=== PATIENT | male | born 1970 | race Asian ===

== ENCOUNTER 2020-10-18 11:27 | Outpatient (REF) | payer OTHER, SELFPAY ==
[2020-10-18 14:50] LABS: Hemoglobin 15.7 g/dl (14.0-18.0); Mean Corpuscular Hemoglobin 27.6 pg (27.0-33.0); Mean Corpuscular Volume 86.3 fL (80-98); Mean Platelet Volume 12.7 fL (9.4-12.4); Platelet Count 161 X10*3/uL (160-400); Red Blood Count 5.68 X10*6/uL (4.60-5.80); Red Cell Distribution Width 12.2 % (11.0-16.0); White Blood Count 6.4 X10*3/uL (4.8-10.8)
[2020-10-18 15:14] LABS: Alanine Aminotransferase 32 U/L (0-40); Alkaline Phosphatase 54 U/L (39-117); Anion Gap 15 (12-20); Aspartate Amino Transferase 22 U/L (5-37); Bilirubin Total 0.4 mg/dL (0.0-1.0); Blood Urea Nitrogen 18 mg/dL (9-16); C Reactive Protein 0.13 mg/dL (< or = 0.50); Calcium 9.9 mg/dL (8.4-10.2); Carbon Dioxide 26 mmol/L (22-29); Chloride 106 mmol/L (96-108); Estimated Glomerular Filt Rate > 60; Glucose Random 87 mg/dL (60-115); Potassium 4.3 mmol/l (3.3-5.1); Sodium 143 mmol/L (135-145); Total Protein 7.8 g/dL (6.5-8.0)
[2020-10-18 15:29] LABS: Erythrocyte Sedimentation Rate 2 MM/HR (0-15)
[2020-10-18 15:34] LABS: Ferritin 126 ng/mL (20-250); TSH reflex Free T4 1.04 mIU/mL (0.32-4.0)
[2020-10-18 15:43] LABS: Folate 11.6 ng/mL (> or = 4.0); Vitamin B12 1029 pg/mL (200-900)
[2020-10-19 14:52] LABS: H Pylori Breath Test NOT DETECTED (NOT DETECTED)
[2020-10-21 14:12] LABS: IgA 305 mg/dL (47-310); IgG 1109 mg/dL (600-1640); IgM 50 mg/dL (50-300)
[2020-10-21 14:38] LABS: Immunoglobulin E 123 kU/L (<OR=114)
[2020-10-21 15:47] LABS: Transglutaminase Ab IgG 1 U/mL; Transglutaminase IgA 1 U/mL
[2020-10-21 23:57] LABS: Zinc 75 mcg/dL (60-130)
[2020-10-22 21:47] LABS: Histamine Plasma <1.5 ng/mL (< OR = 1.8)
== END 2020-10-18 11:28 | disposition home or self-care (01) ==
LOC: HO.LAB 11:27
PROVIDERS: Visit Provider Internal Medicine Gastroenterology
DX: R10.9 Unspecified abdominal pain (principal); K63.89 Other specified diseases of intestine; L50.3 Dermatographic urticaria
CPT/HCPCS: 36415; 80053; 82607; 82728; 82746; 82784; 82785; 83013; 83088; 83516; 83520; 84443; 84630; 85027; 85652; 86003; 86140

== ENCOUNTER 2020-10-19 | Outpatient (REF) | payer OTHER, SELFPAY ==
[2020-10-21 15:18] LABS: CDIFF Ag Negative (Negative); CDiff Toxin Negative (Negative)
[2020-10-21 15:19] LABS: CDIFF Internal ctrl Dots and bkg OK (V)
[2020-10-23 23:43] LABS: Fecal Fat Qualitative Normal (Normal)
[2020-10-26 21:38] LABS: Pancreatic Elastase-1 >500 mcg/g
[2020-10-27 23:07] LABS: Calprotectin, Fecal 6 mcg/g
== END 2020-10-19 00:01 | disposition home or self-care (01) ==
LOC: HO.LNP
PROVIDERS: Visit Provider Internal Medicine Gastroenterology
DX: R10.9 Unspecified abdominal pain (principal); K63.89 Other specified diseases of intestine; L50.3 Dermatographic urticaria
CPT/HCPCS: 82656; 82705; 83993; 87015; 87207; 87272; 87324; 87329; 87449

== ENCOUNTER 2020-11-21 09:59 | Outpatient (REF) | payer OTHER, SELFPAY ==
--- NOTE | ~2020-11-21 | US_ITS ---
EXAMINATION: US ABDOMEN COMPLETE CLINICAL INFORMATION: Other specified diseases of intestine. COMPARISON: None TECHNIQUE: Real-time imaging of the abdominal viscera. FINDINGS: PANCREAS: Visualized portions are unremarkable. The tail is obscured by bowel gas shadowing. ABDOMINAL AORTA: Visualized portions unremarkable. INFERIOR VENA CAVA: Visualized portions unremarkable. LIVER: Unremarkable. GALLBLADDER: Unremarkable. COMMON BILE DUCT: Normal in caliber measuring 0.6 cm in diameter. RIGHT KIDNEY: 11.6 cm. An anechoic cyst in the lower pole measures 1.2 cm. LEFT KIDNEY: 11.7 cm. Unremarkable. SPLEEN: 10.8 cm. Unremarkable. FREE FLUID: None. US/US abdomen complete IMPRESSION: Small right lower pole renal cyst demonstrates benign features. No other significant abnormality.
== END 2020-11-21 10:00 | disposition home or self-care (01) ==
LOC: HO.HMGCX 09:59
PROVIDERS: Visit Provider Internal Medicine Gastroenterology
DX: R10.9 Unspecified abdominal pain (principal); K63.89 Other specified diseases of intestine; L50.3 Dermatographic urticaria
CPT/HCPCS: 76700

== ENCOUNTER → 2021-01-10 10:45 | Outpatient (BNVA) | payer OTHER, SELFPAY | PROVIDERS: Visit Provider Internal Medicine Gastroenterology ==

== ENCOUNTER → 2021-07-15 16:09 | Outpatient (BNVA) | payer OTHER, SELFPAY | PROVIDERS: Visit Provider Internal Medicine Gastroenterology ==

== ENCOUNTER → 2021-08-01 11:08 | Outpatient (BNVA) | payer OTHER, SELFPAY | PROVIDERS: Visit Provider Internal Medicine Gastroenterology ==

== ENCOUNTER → 2022-10-19 13:24 | Outpatient (BNVA) | payer OTHER, SELFPAY | PROVIDERS: Visit Provider Internal Medicine Gastroenterology | DX: Z13.89 Encounter for screening for other disorder (principal) ==

== ENCOUNTER 2023-08-06 12:42 | Outpatient (AMB) | payer OTHER, SELFPAY ==
--- NOTE | 2023-08-06 12:50 | MHC.OFFVIS ---
Intake Vital Signs 08/06/23 12:51 Height 5 ft 5 in Weight 183 lb 6.793 oz BMI 30.5 BP 121/67 Blood Pressure Location Rt brachial Position Sitting Pulse 91 Intake Visit Reasons: 4 month FU Intake Note: Zaid presents in the office. CC: Patient reports she is not doing well, he continues to have abdominal distention, and acid reflux. He states that he is following all recommendations and that he has changed his diet but continues having abdominal distention. He also has noticed his stomach making rumbling a lot. Patient also reports concerns about snoring at night despite trying to keep his weight under control. He also states waking up and having to go to the bathroom, unsure if his stomach is what's waking him up or if he is waking up due to hypoxia. [employer] Labor Required: No Accompanied by: Self / Same As Patient Allergies ethinyl estradiol [From [facility] ()] Allergy (Severe, Verified 08/06/23 12:57) Dizziness levonorgestrel [From [facility] (91)] Allergy (Severe, Verified 08/06/23 12:57) Dizziness HPI 4 month FU HPI Details 53 yr old m here for f/u RECAP: His sx started many years ago after he had appendectomy aged 19, before that he felt well He then noted sx with distention, diarrhea he had a number of tests in [place] treated for giardia and other parasites, given courses of flagyl he was eventually dx with IBS sx have been ongoing Since last several yrs sx have increased Even interrupt sleep he has frequent bowel habit he has distention, belching and flatus, he can have frequent bowle habits incl at night has noted choking and reflux sx dayna with abdominal distention can get cold feet and hands relief with passing stool, and gas sx can improve with going to the bathroom he said he has had fissure in past, and hemorrhoids for yrs, sees blood sometimes he does have to push a lot when doing toilet, he can have urgency he denies anxiety, or stress he did not try creon due to pork component He has tried 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, tried FODMAP diet and probiotics with variable results had flagyl and cipro long time ago and seemed to help for some time with his sx He never had CT scan, but did have EGD 10 yrs ago, they said it was normal Chronic bloating, diarrhea, distention, reflux sx-strongly with my suspicion 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 VITAL SIGNS:see workflow HEENT: Nonicteric sclerae, PERRLA, EOMI. Oropharynx clear. Moist mucous membranes. Conjunctivae appear well perfused. No thyroid mass. CHEST: Chest wall is nontender. HEART: Regular rate and rhythm without murmurs. LUNGS: Clear to auscultation bilaterally. ABDOMEN: Soft, positive bowel sounds, nontender, no organomegaly.no flank tenderness SKIN: No rash, no excessive bruising, petechiae, or purpura. NEUROLOGIC: Cranial nerves II-XII intact without motor/sensory deficit. 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 , DDX: SIBO, GERD< small bowel enteropathy, bile acid related diarrhea (BAM), mast cell d/o, crohns colitis, colonic polyp or other lesion, eosinophilic colitis or enteritis, microscopic colitis, hormone secreting tumours much less likely He is not agreeable to EGD at this time 2/ possible SAEED PLAN: 1/ Ba swallow 2/ cont with lansoprazole 3/ discussed using reglan, baclofen but he wants to hold 4/ refer sleep study may be related to his GI sx 5/ nutrient screen due to pins and needles in hands [facility] History History of appendectomy Hx of endoscopy Family History Father Family history of Alzheimer's disease Mother Hx of heat stroke Social History Household Members: Spouse and Children Alcohol intake: never Physical Exam Vital Signs: Last Vital Signs Pulse 91 08/06/23 12:51 BP 121/67 08/06/23 12:51 BMI result Body Mass Index 30.5 Assessment & Plan Assessment & Plan (1) Abdominal pain: Code(s): R10.9 - Unspecified abdominal pain (2) Small intestinal bacterial overgrowth (SIBO): Code(s): K63.89 - Other specified diseases of intestine (3) Neuropathy: Code(s): G62.9 - Polyneuropathy, unspecified Orders: Orders Vitamin B1 Today G62.9 - Polyneuropathy, unspecified, K63.89 - Other specified diseases of intestine, R10.9 - Unspecified abdominal pain Vitamin A Today G62.9 - Polyneuropathy, unspecified, K63.89 - Other specified diseases of intestine, R10.9 - Unspecified abdominal pain Vitamin B12 and Folate Today G62.9 - Polyneuropathy, unspecified, K63.89 - Other specified diseases of intestine, R10.9 - Unspecified abdominal pain Vitamin B3 (Niacin) Today G62.9 - Polyneuropathy, unspecified, K63.89 - Other specified diseases of intestine, R10.9 - Unspecified abdominal pain Vitamin B5 (Pantothenic Acid) Today G62.9 - Polyneuropathy, unspecified, K63.89 - Other specified diseases of intestine, R10.9 - Unspecified abdominal pain Vitamin B6 Today G62.9 - Polyneuropathy, unspecified, K63.89 - Other specified diseases of intestine, R10.9 - Unspecified abdominal pain Vitamin E Today G62.9 - Polyneuropathy, unspecified, K63.89 - Other specified diseases of intestine, R10.9 - Unspecified abdominal pain Zinc Today G62.9 - Polyneuropathy, unspecified, K63.89 - Other specified diseases of intestine, R10.9 - Unspecified abdominal pain Comprehensive Met. Panel Today G62.9 - Polyneuropathy, unspecified, K63.89 - Other specified diseases of intestine, K75.81 - Nonalcoholic steatohepatitis (ZAVALA), R10.9 - Unspecified abdominal pain FL barium swallow Today R13.10 - Dysphagia, unspecified Vitamin C Today G62.9 - Polyneuropathy, unspecified, K63.89 - Other specified diseases of intestine, R10.9 - Unspecified abdominal pain Vitamin D 25-OH Total Today G62.9 - Polyneuropathy, unspecified, K63.89 - Other specified diseases of intestine, R10.9 - Unspecified abdominal pain Vitamin K1 Today G62.9 - Polyneuropathy, unspecified, K63.89 - Other specified diseases of intestine, R10.9 - Unspecified abdominal pain Ferritin Today G62.9 - Polyneuropathy, unspecified, K63.89 - Other specified diseases of intestine, R10.9 - Unspecified abdominal pain Complete Blood Count Auto Diff Today G62.9 - Polyneuropathy, unspecified, K63.89 - Other specified diseases of intestine, R10.9 - Unspecified abdominal pain TSH reflex Free T4 Today G62.9 - Polyneuropathy, unspecified, K63.89 - Other specified diseases of intestine, R10.9 - Unspecified abdominal pain Immunoglobulins,IgG IgA IgM Today G62.9 - Polyneuropathy, unspecified, K63.89 - Other specified diseases of intestine, R10.9 - Unspecified abdominal pain JEANNETTE Reflex Titer and Pattern Today G62.9 - Polyneuropathy, unspecified, K63.89 - Other specified diseases of intestine, R10.9 - Unspecified abdominal pain, R79.82 - Elevated C-reactive protein (CRP) Coding Level of Care Code Est Pt Level 4 (68086) Diagnoses Abdominal pain R10.9 Small intestinal bacterial overgrowth (SIBO) K63.89 Neuropathy G62.9
[2023-08-06 12:51] VITALS: BP 121/67; PULSE 91; BMI 30.5
== END 2023-08-06 13:43 | disposition home or self-care (01) ==
PROVIDERS: Visit Provider Internal Medicine Gastroenterology
DX: R10.9 Unspecified abdominal pain (principal); K63.89 Other specified diseases of intestine; G62.9 Polyneuropathy, unspecified
CPT/HCPCS: 99214

== ENCOUNTER → 2023-08-06 12:42 | Outpatient (BNVA) | payer OTHER, SELFPAY | PROVIDERS: Visit Provider Internal Medicine Gastroenterology ==